=== PATIENT | female | born 2000 | race Two or more races ===

== ENCOUNTER 2024-11-22 04:24 | Inpatient (IN) | payer OTHER ==
[~2024-11-22] VITALS: Ht 152.4 cm; Wt 59.0 kg
--- NOTE | 2024-11-22 04:41 | NUR ---
PTE ALERTA Y ORIENTADA X3 QUIEN REFIERE VENIR DE TRANSFER DE CDT POR VOMITOS, HIPOTENSION Y FIEBRE. PRESION MANUAL 94/46
[2024-11-22] MEDS ORDERED: ACETAMINOPHEN 500 MG GEL..CAP PO STA (05:12)
[2024-11-22] MEDS ORDERED: 0.9 % SODIUM CHLORIDE 1,000 ML IV ONE (05:15)
[2024-11-22] MEDS ORDERED: ACETAMINOPHEN 500 MG GEL..CAP PO ONE ×3 (05:22→09:09)
--- NOTE | 2024-11-22 05:27 | NUR ---
PTE ALERTA Y ORIENTDA X3. FAB COLÓN EDUCA A PTE SOBRE DUNIA DE MUESTRAS Y TRATAMIENTO MEDICO ORDENADO POR MD, PTE REFIERE ENTENDER. SE REALIZA DUNIA DE MUESTRAS Y ADMINISTRACION DE MEDICAMENTOS BAJO MEDIDAS ASEPTICAS.
--- NOTE | 2024-11-22 05:29 | NUR ---
SE NOTIFICA SONO OBSTETRICO A JERRY. ESTA VERBALIZA DARLE SEGUIMIENTO EN HOSPITAL. CAMBIAR SONO OBSTETRICO POR Y REALIZARLO A LAS [id number]
--- NOTE | 2024-11-22 05:36 | NUR ---
SE LE ORIENTA SOBRE TX MEDICO LO CUAL REFIERE ENTENDER Y ACEPTAR SE LE REALZIAN MUESTRAS DE LAB BAJO MEDIAS ASEPTICAS Y SE LE ADMINISTRA MEDICAMENTOS VALERI ORDEN MEDICA
[2024-11-22 06:09] LABS: HEMATOCRIT 32.8 % (36.0-45.00); MEAN CELL VOLUME 88.8 fL (80.00-100.00); MEAN CORPUSCULAR HEMOGLOBIN 29.8 pg (27.00-32.0); MEAN CORPUSCULAR HGB CONC 33.5 g/dl (32.0-36.0); RED BLOOD COUNT 3.69 M/uL (4.00-6.00); RED CELL DISTRIBUTION WIDTH 15.8 % (11.5-14.5)
[2024-11-22 06:17] LABS: PLATELET COUNT 78 K/uL (150-450)
[2024-11-22 06:30] LABS: ALBUMIN 2.8 gm/dL (3.4-5.0); BILIRUBIN TOTAL 1.59 mg/dL (0.3-1.2); CALCIUM 8.7 mg/dL (8.5-10.1); CREATININE SERUM 0.6 mg/dL (0.55-1.02); GFR 123.88; GLOBULINA 3.7 G/DL (2.4-3.5); POTASSIUM 3.51 mEq/L (3.5-5.1); TOTAL PROTEIN 6.5 gm/dL (6.4-8.2)
[2024-11-22 07:13] LABS: PH,URINE 5.5 (5.0-8.0); URINE APPEARANCE Clear; URINE BILIRRUBIN Negative (NEGATIVE); URINE BLOOD Negative; URINE COLOR Dark Yellow; URINE GLUCOSE Negative (NEGATIVE); URINE LEUKOCYTE Trace; URINE NITRATE Negative; URINE PROTEIN Trace (NEGATIVE)
[2024-11-22 07:16] LABS: URINE BACTERIA 3491.9 uL (0.0-1933); URINE EPITHELIAL CELLS 44.1 uL (0.0-38.8); URINE RBC 12.9 uL (0.0-20.8); URINE WBC 88.6 uL (0.0-23.2)
[2024-11-22 07:41] LABS: URINE CAST 0.14 uL (0.0-1.40); URINE KETONE 80 (NEGATIVE)
[2024-11-22] MEDS ORDERED: CEFTRIAXONE SODIUM 1,000 MG VIAL IV STA (08:01)
--- NOTE | 2024-11-22 08:06 | NUR ---
SE RECIBE A PACIENTE ALERTA Y ORIENTADA X3 EN CAMA A NIVEL DE PISO JUNTO CON BARRANDAS ELEVADAS. CANALIZADA CON #22 EN LT ARTM BAJANDO 0.9NSS A 200ML/HR. PENDIENTE A CONSULTA OBSTETRICA.
[2024-11-22] MEDS ORDERED: CEFTRIAXONE SODIUM 1,000 MG VIAL ONE (08:08)
[2024-11-22] MEDS ORDERED: ONDANSETRON HCL 2 MG/ML VIAL IV ONE (09:00)
[2024-11-22] MEDS ORDERED: ONDANSETRON HCL 2 MG/ML VIAL ONE (09:09)
[2024-11-22] MEDS ORDERED: ONDANSETRON HCL 2 MG/ML VIAL IV PRN (09:15)
[2024-11-22] MEDS ORDERED: RINGERS SOLUTION,LACTATED 1,000 ML IV SCH (09:15)
[2024-11-22] MEDS ORDERED: ACETAMINOPHEN 500 MG GEL..CAP PO PRN (09:15)
[2024-11-22 09:54] LABS: PH,URINE 5.5 (5.0-8.0); URINE APPEARANCE Clear; URINE BILIRRUBIN Small (NEGATIVE); URINE BLOOD Negative; URINE COLOR Dark Yellow; URINE GLUCOSE Negative (NEGATIVE); URINE LEUKOCYTE Negative; URINE NITRATE Negative; URINE PROTEIN Trace (NEGATIVE)
[2024-11-22 09:56] LABS: URINE BACTERIA 628.9 uL (0.0-1933); URINE EPITHELIAL CELLS 14.4 uL (0.0-38.8); URINE WBC 16.6 uL (0.0-23.2)
[2024-11-22 10:06] LABS: URINE CAST 0.58 uL (0.0-1.40); URINE KETONE 80 (NEGATIVE)
[2024-11-22 11:05] VITALS: BP 90/55
[2024-11-22 17:00] VITALS: BP 92/59
[2024-11-22] MEDS ORDERED: FAMOTIDINE/PF 20 MG/2 ML VIAL IV SCH (17:00)
[2024-11-22 19:33] LABS: HEMATOCRIT 35.5 % (36.0-45.00); HEMOGLOBIN 11.7 g/dL (12.0-15.00); MEAN CORPUSCULAR HEMOGLOBIN 29.7 pg (27.00-32.0); RED BLOOD COUNT 3.95 M/uL (4.00-6.00); RED CELL DISTRIBUTION WIDTH 16.1 % (11.5-14.5)
[2024-11-22 19:36] LABS: PLATELET COUNT 49 K/uL (150-450)
[2024-11-22 19:40] LABS: URINE APPEARANCE Clear; URINE BILIRRUBIN Negative (NEGATIVE); URINE BLOOD Negative; URINE COLOR Yellow; URINE GLUCOSE Negative (NEGATIVE); URINE KETONE Negative (NEGATIVE); URINE LEUKOCYTE Trace; URINE NITRATE Negative; URINE PROTEIN Negative (NEGATIVE)
[2024-11-22 19:51] LABS: URINE BACTERIA 364.4 uL (0.0-1933); URINE EPITHELIAL CELLS 5.2 uL (0.0-38.8)
[2024-11-22 19:52] LABS: URINE RBC 1.9 uL (0.0-20.8)
[2024-11-22 19:57] LABS: BILIRUBIN TOTAL 1.09 mg/dL (0.3-1.2); CALCIUM 8.5 mg/dL (8.5-10.1); CREATININE SERUM 0.6 mg/dL (0.55-1.02); GFR 123.88; GLOBULINA 3.5 G/DL (2.4-3.5); POTASSIUM 4.23 mEq/L (3.5-5.1); TOTAL PROTEIN 6.5 gm/dL (6.4-8.2)
[2024-11-22 20:30] LABS: ABG PH 7.485 (7.35-7.45); ABG PO2 81.4 mmHg (80-100); ABG pCO2 25.7 mmHg (35-45); BASE EXCESS -2.7 mmol/l; SaO2 96.8 %; Tco2 19.7 mmol/l
[2024-11-22 20:36] LABS: allen test SATISFACTORY; o2 21 %; puncture site RADIAL LEFT
[2024-11-22 20:56] LABS: INR 1.1; PARTIAL THROMBOPLASTIN TIME 27.1 SECONDS (22.0-34.0); PROTHROMBIN TIME 11.9 SECONDS (9.0-11.5)
[2024-11-22 23:50] VITALS: BP 86/66
[2024-11-23] MEDS ORDERED: GUAIFENESIN 200 MG/10 ML BLIST.PACK PO SCH
[2024-11-23] MEDS ORDERED: BENZONATATE 100 MG CAPSULE PO SCH ×2 (02:52→05:00)
[2024-11-23 08:06] VITALS: BP 105/67; O2SAT 110
[2024-11-23] MEDS ORDERED: 0.9 % SODIUM CHLORIDE 1,000 ML IV SCH (08:15)
[2024-11-23 08:30] LABS: URINE APPEARANCE Clear; URINE BILIRRUBIN Negative (NEGATIVE); URINE BLOOD Negative; URINE COLOR Yellow; URINE GLUCOSE Negative (NEGATIVE); URINE LEUKOCYTE Negative; URINE NITRATE Negative; URINE PROTEIN Trace (NEGATIVE)
[2024-11-23 08:34] LABS: URINE BACTERIA 68.5 uL (0.0-1933); URINE EPITHELIAL CELLS 7.8 uL (0.0-38.8); URINE RBC 2.7 uL (0.0-20.8); URINE WBC 7.4 uL (0.0-23.2)
[2024-11-23 08:37] LABS: URINE CAST 0.14 uL (0.0-1.40); URINE KETONE >=160 (NEGATIVE)
[2024-11-23] MEDS ORDERED: SUCRALFATE 1 G TABLET PO SCH (09:00)
[2024-11-23 09:10] LABS: HEMATOCRIT 31.5 % (36.0-45.00); MEAN CELL VOLUME 89.3 fL (80.00-100.00); MEAN CORPUSCULAR HGB CONC 33.2 g/dl (32.0-36.0); RED BLOOD COUNT 3.53 M/uL (4.00-6.00)
[2024-11-23 09:12] LABS: HEMOGLOBIN 10.5 g/dL (12.0-15.00); MEAN CORPUSCULAR HEMOGLOBIN 29.7 pg (27.00-32.0); PLATELET COUNT 46 K/uL (150-450)
[2024-11-23 09:14] LABS: INR 1.11; PARTIAL THROMBOPLASTIN TIME 32.8 SECONDS (22.0-34.0)
[2024-11-23 09:35] LABS: ALBUMIN 2.9 gm/dL (3.4-5.0); BILIRUBIN TOTAL 1.1 mg/dL (0.3-1.2); CALCIUM 8.4 mg/dL (8.5-10.1); CREATININE SERUM 0.45 mg/dL (0.55-1.02); GFR 172.66; GLOBULINA 3.2 G/DL (2.4-3.5); POTASSIUM 3.32 mEq/L (3.5-5.1); TOTAL PROTEIN 6.1 gm/dL (6.4-8.2)
[2024-11-23] MEDS ORDERED: METHYLPREDNISOLONE SOD SUCC 40 MG VIAL IV STA (11:24)
[2024-11-23 11:27] LABS: MANUAL PLATELET COUNT 60
[2024-11-23] MEDS ORDERED: IPRATROPIUM BROMIDE 0.5 MG/2.5 ML AMPUL.NEB IH SCH (13:00)
[2024-11-23 15:19] LABS: HEMATOCRIT 32.2 % (36.0-45.00); HEMOGLOBIN 11.1 g/dL (12.0-15.00); MEAN CELL VOLUME 88.2 fL (80.00-100.00); MEAN CORPUSCULAR HEMOGLOBIN 30.3 pg (27.00-32.0); MEAN CORPUSCULAR HGB CONC 34.4 g/dl (32.0-36.0); RED BLOOD COUNT 3.66 M/uL (4.00-6.00); RED CELL DISTRIBUTION WIDTH 16.3 % (11.5-14.5)
[2024-11-23 15:29] LABS: PLATELET COUNT 45 K/uL (150-450); PLT IN CITRATE 50 K/uL (150-450)
[2024-11-23 15:52] VITALS: BP 109/71
[2024-11-23] MEDS ORDERED: BUDESONIDE 0.5 MG/2 ML AMPUL.NEB IH SCH (17:00)
[2024-11-23 18:41] LABS: URINE APPEARANCE Clear; URINE BILIRRUBIN Negative (NEGATIVE); URINE BLOOD Negative; URINE COLOR Yellow; URINE GLUCOSE Negative (NEGATIVE); URINE LEUKOCYTE Negative; URINE NITRATE Negative; URINE PROTEIN Negative (NEGATIVE)
[2024-11-23 18:42] LABS: URINE BACTERIA 4.8 uL (0.0-1933)
[2024-11-23 18:44] LABS: URINE KETONE 80 (NEGATIVE); URINE RBC 0.7 uL (0.0-20.8)
[2024-11-23 18:45] LABS: HEMATOCRIT 34.1 % (36.0-45.00); HEMOGLOBIN 11.8 g/dL (12.0-15.00); MEAN CORPUSCULAR HEMOGLOBIN 30.4 pg (27.00-32.0); MEAN CORPUSCULAR HGB CONC 34.6 g/dl (32.0-36.0); RED BLOOD COUNT 3.87 M/uL (4.00-6.00); RED CELL DISTRIBUTION WIDTH 16.4 % (11.5-14.5)
[2024-11-23 18:57] LABS: PLATELET COUNT 48 K/uL (150-450)
[2024-11-23 19:04] LABS: ALBUMIN 3.1 gm/dL (3.4-5.0); BILIRUBIN TOTAL 1.11 mg/dL (0.3-1.2); CALCIUM 8.7 mg/dL (8.5-10.1); CREATININE SERUM 0.54 mg/dL (0.55-1.02); GFR 139.9; GLOBULINA 3.8 G/DL (2.4-3.5); POTASSIUM 3.38 mEq/L (3.5-5.1); TOTAL PROTEIN 6.9 gm/dL (6.4-8.2)
[2024-11-23 19:31] LABS: MANUAL PLATELET COUNT 50; PLT IN CITRATE 42 K/uL (150-450)
[2024-11-23] MEDS ORDERED: METHYLPREDNISOLONE SOD SUCC 40 MG VIAL IV SCH (20:00)
[2024-11-23 20:24] VITALS: BP 90/60
[2024-11-23 22:56] LABS: INR 1.06; PARTIAL THROMBOPLASTIN TIME 31.9 SECONDS (22.0-34.0); PROTHROMBIN TIME 11.5 SECONDS (9.0-11.5)
[2024-11-24 01:22] VITALS: BP 99/52
[2024-11-24 06:51] LABS: HEMATOCRIT 32.5 % (36.0-45.00); HEMOGLOBIN 11.1 g/dL (12.0-15.00); MEAN CELL VOLUME 88.2 fL (80.00-100.00); MEAN CORPUSCULAR HEMOGLOBIN 30.2 pg (27.00-32.0); MEAN CORPUSCULAR HGB CONC 34.3 g/dl (32.0-36.0); RED BLOOD COUNT 3.68 M/uL (4.00-6.00); RED CELL DISTRIBUTION WIDTH 16.5 % (11.5-14.5)
[2024-11-24 06:54] LABS: URINE APPEARANCE Clear; URINE BILIRRUBIN Negative (NEGATIVE); URINE BLOOD Negative; URINE COLOR Yellow; URINE GLUCOSE Negative (NEGATIVE); URINE LEUKOCYTE Negative; URINE NITRATE Negative; URINE PROTEIN Trace (NEGATIVE)
[2024-11-24 06:55] LABS: URINE BACTERIA 57.5 uL (0.0-1933); URINE EPITHELIAL CELLS 20.8 uL (0.0-38.8); URINE WBC 11.7 uL (0.0-23.2)
[2024-11-24 06:57] LABS: PLATELET COUNT 38 K/uL (150-450)
[2024-11-24 06:57] LABS: URINE CAST 0.29 uL (0.0-1.40); URINE RBC 1.3 uL (0.0-20.8)
[2024-11-24 06:58] LABS: URINE KETONE >=160 (NEGATIVE)
[2024-11-24 07:43] LABS: ALBUMIN 2.6 gm/dL (3.4-5.0); BILIRUBIN TOTAL 0.95 mg/dL (0.3-1.2); CALCIUM 8.2 mg/dL (8.5-10.1); CREATININE SERUM 0.36 mg/dL (0.55-1.02); GFR 223.37; GLOBULINA 3.1 G/DL (2.4-3.5); POTASSIUM 3.47 mEq/L (3.5-5.1); TOTAL PROTEIN 5.7 gm/dL (6.4-8.2)
[2024-11-24 08:00] VITALS: BP 106/71; O2SAT 92
[2024-11-24 08:22] LABS: MANUAL PLATELET COUNT 44
[2024-11-24 08:26] LABS: PLT IN CITRATE 39 K/uL (150-450)
[2024-11-24] MEDS ORDERED: AZITHROMYCIN 500 MG VIAL IV SCH (09:00)
[2024-11-24] MEDS ORDERED: CEFTRIAXONE SODIUM 1,000 MG in DEXTROSE 5 % IN WATER 100 ML IV SCH ×2 (09:00)
[2024-11-24] MEDS ORDERED: POTASSIUM CHLORIDE IN WATER 100 ML IV SCH (09:00)
[2024-11-24 10:47] LABS: ABG PH 7.455 (7.35-7.45); ABG PO2 81.1 mmHg (80-100); ABG pCO2 26.8 mmHg (35-45); BASE EXCESS -3.8 mmol/l; BICARBONATE 18.4 mmol/l (23-25); SaO2 96.4 %; Tco2 19.3 mmol/l; allen test SATISFACTORY; o2 32 %; puncture site RADIAL LEFT
[2024-11-24 11:20] LABS: ALBUMIN 2.5 gm/dL (3.4-5.0); BILIRUBIN TOTAL 0.91 mg/dL (0.3-1.2); BILIRUBIN,CONJUGATED 0.23 mg/dL (0.0-0.2); BILIRUBIN,UNCONJUGATED 0.68 mg/dL (0.0-0.6); MAGNESIUM 1.5 mg/dL (1.8-2.4); TOTAL PROTEIN 5.7 gm/dL (6.4-8.2)
[2024-11-24 11:25] LABS: TSH 0.338 uIU/mL (0.358-3.74)
[2024-11-24 11:28] LABS: PROCALCITONIN 8.57 ng/ml (0.020-0.080)
[2024-11-24 12:44] VITALS: BP 106/65; O2SAT 95
[2024-11-24 15:14] VITALS: BP 112/67; O2SAT 96
[2024-11-24] MEDS ORDERED: LACTOBACILLUS ACIDOPHILUS 1 CAP CAP PO SCH (17:00)
[2024-11-24] MEDS ORDERED: MAGNESIUM SULFATE IN WATER 50 ML IV NR (18:45)
[2024-11-24 20:12] VITALS: BP 108/69; O2SAT 100
[2024-11-25] VITALS: BP 109/59; O2SAT 100
[2024-11-25 04:00] VITALS: BP 116/65; O2SAT 100
[2024-11-25] MEDS ORDERED: AZITHROMYCIN 500 MG VIAL IV ONE (08:47)
[2024-11-25] MEDS ORDERED: LEVALBUTEROL HCL 1.25 MG/3 ML SOLUTION IH SCH (09:00)
[2024-11-25] MEDS ORDERED: BUDESONIDE 0.5 MG/2 ML AMPUL.NEB IH SCH (09:00)
[2024-11-25] MEDS ORDERED: CEFTRIAXONE SODIUM 2,000 MG VIAL IV SCH (09:00)
[2024-11-25 09:48] LABS: HEMATOCRIT 31.2 % (36.0-45.00); HEMOGLOBIN 10.6 g/dL (12.0-15.00); MEAN CORPUSCULAR HGB CONC 34.1 g/dl (32.0-36.0); RED BLOOD COUNT 3.55 M/uL (4.00-6.00); RED CELL DISTRIBUTION WIDTH 16.4 % (11.5-14.5)
[2024-11-25 10:09] LABS: PLATELET COUNT 39 K/uL (150-450)
[2024-11-25] MEDS ORDERED: CHLORHEXIDINE GLUCONATE 120 ML BOTTLE TOP ONE (10:09)
[2024-11-25 10:20] LABS: D DIMER 2.43 MG/L; INR 0.98; PARTIAL THROMBOPLASTIN TIME 31.3 SECONDS (22.0-34.0); PROTHROMBIN TIME 10.7 SECONDS (9.0-11.5)
[2024-11-25 10:50] LABS: MANUAL PLATELET COUNT 56
[2024-11-25 11:31] LABS: ALBUMIN 2.3 gm/dL (3.4-5.0); BILIRUBIN TOTAL 1.18 mg/dL (0.3-1.2); CALCIUM 7.8 mg/dL (8.5-10.1); CREATININE SERUM 0.5 mg/dL (0.55-1.02); GFR 152.89; GLOBULINA 2.9 G/DL (2.4-3.5); MAGNESIUM 1.8 mg/dL (1.8-2.4); TOTAL PROTEIN 5.2 gm/dL (6.4-8.2)
[2024-11-25 12:00] VITALS: BP 149/71; BP 90/60; O2SAT 100; O2SAT 99
[2024-11-25 12:05] LABS: PHOSPHOROUS 1.5 mg/dL (2.5-4.9); POTASSIUM 2.96 mEq/L (3.5-5.1)
[2024-11-25] MEDS ORDERED: POTASSIUM CHLORIDE IN WATER 40 MEQ/100 ML PIGGYBAG IV SCH (12:17)
[2024-11-25] MEDS ORDERED: MAGNESIUM SULFATE IN WATER 2 GM/50 ML PIGGYBAG IV NR (13:30)
[2024-11-25 14:52] LABS: PLATELET ESTIMATE DECREASED (NORMAL)
[2024-11-25 15:07] VITALS: BP 92/60; O2SAT 100
[2024-11-25 20:28] VITALS: BP 92/58; O2SAT 100
[2024-11-25] MEDS ORDERED: POTASSIUM PHOS,M-BASIC-D-BASIC 3 MM/ML VIAL IV NR (21:00)
[2024-11-26] VITALS: BP 92/62; O2SAT 100
[2024-11-26 04:00] VITALS: BP 89/59; O2SAT 100
[2024-11-26 07:01] VITALS: BP 104/69; O2SAT 100
[2024-11-26] MEDS ORDERED: AZITHROMYCIN 500 MG VIAL IV ONE (07:54)
[2024-11-26 12:00] VITALS: BP 101/50; O2SAT 100
[2024-11-26 14:39] VITALS: BP 105/67; O2SAT 97
[2024-11-26 14:55] VITALS: BP 96/64
[2024-11-26 19:09] LABS: PH,URINE 7.5 (5.0-8.0); URINE APPEARANCE Clear; URINE BILIRRUBIN Negative (NEGATIVE); URINE BLOOD Negative; URINE COLOR Yellow; URINE GLUCOSE Negative (NEGATIVE); URINE KETONE Negative (NEGATIVE); URINE LEUKOCYTE Negative; URINE NITRATE Negative; URINE PROTEIN Negative (NEGATIVE)
[2024-11-26 19:12] LABS: URINE EPITHELIAL CELLS 3.6 uL (0.0-38.8); URINE WBC 6.3 uL (0.0-23.2)
[2024-11-26 19:42] LABS: URINE BACTERIA 2.4 uL (0.0-1933); URINE RBC 1.3 uL (0.0-20.8)
[2024-11-26] MEDS ORDERED: BUDESONIDE 0.5 MG/2 ML AMPUL.NEB IH SCH (21:00)
[2024-11-27 00:12] VITALS: BP 100/64
[2024-11-27 07:46] LABS: HEMATOCRIT 30.7 % (36.0-45.00); HEMOGLOBIN 10.2 g/dL (12.0-15.00); MEAN CELL VOLUME 89.1 fL (80.00-100.00); MEAN CORPUSCULAR HEMOGLOBIN 29.7 pg (27.00-32.0); MEAN CORPUSCULAR HGB CONC 33.3 g/dl (32.0-36.0); PLATELET COUNT 41 K/uL (150-450); RED BLOOD COUNT 3.44 M/uL (4.00-6.00); RED CELL DISTRIBUTION WIDTH 16.1 % (11.5-14.5)
[2024-11-27 08:19] VITALS: BP 100/60
[2024-11-27 08:41] LABS: ALBUMIN 2.4 gm/dL (3.4-5.0); ALKALINE PHOSPHATASE 78 U/L (50-136); ALT/SGPT 229 U/L (12-78); ANION GAP 8 (10.0-20.0); AST/SGOT 225 U/L (15-37); BILIRUBIN TOTAL 1.11 mg/dL (0.3-1.2); CALCIUM 8.7 mg/dL (8.5-10.1); CARBON DIOXIDE 28 mEq/L (21-32); CHLORIDE 110 mmol/L (98-107); CREATININE SERUM 0.36 mg/dL (0.55-1.02); GFR 223.37; GLOBULINA 3.2 G/DL (2.4-3.5); GLUCOSE FASTING 84 mg/dL (65-100); PHOSPHOROUS 2.7 mg/dL (2.5-4.9); POTASSIUM 3.59 mEq/L (3.5-5.1); SODIUM 142 mmol/L (136-145); TOTAL PROTEIN 5.6 gm/dL (6.4-8.2)
[2024-11-27 08:42] LABS: BLOOD UREA NITROGEN < 1 mg/dL (7-18); BUN CREA RATIO 3 (7.0-25.0); OSMOLALITY SERUM 278 MOSM/KG (275-295)
[2024-11-27 17:08] VITALS: BP 102/65
[2024-11-27] MEDS ORDERED: LEVALBUTEROL HCL 0.63 MG/3 ML SOLUTION IH SCH (17:25)
[2024-11-27 23:50] VITALS: BP 108/74
[2024-11-28] MEDS ORDERED: SUCRALFATE 1 G TABLET PO SCH (13:00)
[2024-11-28 16:00] VITALS: BP 108/66
[2024-11-29 00:30] VITALS: BP 108/70
[2024-11-29 06:35] LABS: HEMOGLOBIN 9.3 g/dL (12.0-15.00); MEAN CELL VOLUME 88.5 fL (80.00-100.00); MEAN CORPUSCULAR HEMOGLOBIN 29.5 pg (27.00-32.0); MEAN CORPUSCULAR HGB CONC 33.4 g/dl (32.0-36.0); RED BLOOD COUNT 3.16 M/uL (4.00-6.00); RED CELL DISTRIBUTION WIDTH 15.8 % (11.5-14.5)
[2024-11-29 06:37] LABS: PLATELET COUNT 49 K/uL (150-450)
[2024-11-29 07:10] LABS: ALBUMIN 2.2 gm/dL (3.4-5.0); BILIRUBIN TOTAL 0.7 mg/dL (0.3-1.2); CALCIUM 8.3 mg/dL (8.5-10.1); CREATININE SERUM 0.33 mg/dL (0.55-1.02); GFR 246.96; GLOBULINA 3.4 G/DL (2.4-3.5); POTASSIUM 3.31 mEq/L (3.5-5.1); TOTAL PROTEIN 5.6 gm/dL (6.4-8.2)
[2024-11-29 08:00] VITALS: BP 102/65; O2SAT 98
[2024-11-29] MEDS ORDERED: SODIUM CHLORIDE 0.45 % 1,000 ML IV SCH (09:15)
[2024-11-29] MEDS ORDERED: MAGNESIUM SULFATE 50% 1,000 MG/2 ML VIAL IM NR (10:06)
[2024-11-29] MEDS ORDERED: POTASSIUM CHLORIDE IN WATER 100 ML IV SCH (12:00)
[2024-11-29 16:01] VITALS: BP 102/65
[2024-11-30 00:51] VITALS: BP 108/74
[2024-11-30 06:59] LABS: HEMATOCRIT 33.1 % (36.0-45.00); MEAN CELL VOLUME 88.3 fL (80.00-100.00); MEAN CORPUSCULAR HEMOGLOBIN 29.5 pg (27.00-32.0); MEAN CORPUSCULAR HGB CONC 33.4 g/dl (32.0-36.0); RED BLOOD COUNT 3.75 M/uL (4.00-6.00); RED CELL DISTRIBUTION WIDTH 15.9 % (11.5-14.5)
[2024-11-30 07:08] LABS: PLT IN CITRATE 72 K/uL (150-450)
[2024-11-30 07:10] LABS: PLATELET COUNT 82 K/uL (150-450)
[2024-11-30 07:32] LABS: ALBUMIN 2.7 gm/dL (3.4-5.0); BILIRUBIN TOTAL 0.79 mg/dL (0.3-1.2); CALCIUM 8.9 mg/dL (8.5-10.1); CREATININE SERUM 0.43 mg/dL (0.55-1.02); GFR 181.96; POTASSIUM 3.54 mEq/L (3.5-5.1); TOTAL PROTEIN 6.7 gm/dL (6.4-8.2)
[2024-11-30 07:49] LABS: MANUAL PLATELET COUNT 226
[2024-11-30 08:23] VITALS: BP 100/60
[2024-11-30] MEDS ORDERED: RINGERS SOLUTION,LACTATED 1,000 ML IV.SOLN ONE (11:34)
[2024-11-30 14:22] VITALS: BP 95/60
[2024-11-30 15:50] VITALS: BP 96/60
[2024-11-30 19:00] VITALS: BP 108/74
[2024-12-01] VITALS: BP 109/72; O2SAT 100
[2024-12-01 07:11] LABS: HEMATOCRIT 32.8 % (36.0-45.00); HEMOGLOBIN 11.2 g/dL (12.0-15.00); MEAN CELL VOLUME 87.5 fL (80.00-100.00); MEAN CORPUSCULAR HEMOGLOBIN 29.7 pg (27.00-32.0); RED BLOOD COUNT 3.75 M/uL (4.00-6.00); RED CELL DISTRIBUTION WIDTH 15.8 % (11.5-14.5)
[2024-12-01 07:12] LABS: PLATELET COUNT 97 K/uL (150-450)
[2024-12-01 07:24] LABS: PLT IN CITRATE 91 K/uL (150-450)
[2024-12-01 07:44] LABS: MANUAL PLATELET COUNT 184
[2024-12-01 08:02] LABS: ALBUMIN 2.6 gm/dL (3.4-5.0); BILIRUBIN TOTAL 0.63 mg/dL (0.3-1.2); CALCIUM 8.8 mg/dL (8.5-10.1); CREATININE SERUM 0.38 mg/dL (0.55-1.02); GFR 209.86; GLOBULINA 3.6 G/DL (2.4-3.5); POTASSIUM 3.68 mEq/L (3.5-5.1); TOTAL PROTEIN 6.2 gm/dL (6.4-8.2)
[2024-12-01 08:07] VITALS: BP 95/57
[2024-12-01 16:08] VITALS: BP 98/63
[2024-12-01 20:00] VITALS: BP 94/60
[2024-12-02] VITALS: BP 93/58; O2SAT 99
[2024-12-02 07:32] LABS: HEMOGLOBIN 10.9 g/dL (12.0-15.00); MEAN CELL VOLUME 88.9 fL (80.00-100.00); MEAN CORPUSCULAR HEMOGLOBIN 29.3 pg (27.00-32.0); MEAN CORPUSCULAR HGB CONC 32.9 g/dl (32.0-36.0); RED BLOOD COUNT 3.72 M/uL (4.00-6.00); RED CELL DISTRIBUTION WIDTH 15.7 % (11.5-14.5)
[2024-12-02 07:34] LABS: PLATELET COUNT 110 K/uL (150-450)
[2024-12-02 07:51] LABS: MANUAL PLATELET COUNT 105
[2024-12-02] MEDS ORDERED: CARAFATE1 GM PO (07:51)
[2024-12-02] MEDS ORDERED: XOPENEX HFA15 GM IH (07:52)
[2024-12-02] MEDS ORDERED: BUDESONIDE0.5 MG/2 M IH (07:53)
[2024-12-02] MEDS ORDERED: INTESTINEX680 M1 PO (07:54)
[2024-12-02 08:17] VITALS: BP 97/60
[2024-12-02 08:47] LABS: ALBUMIN 2.6 gm/dL (3.4-5.0); BILIRUBIN TOTAL 0.6 mg/dL (0.3-1.2); CALCIUM 8.8 mg/dL (8.5-10.1); CREATININE SERUM 0.36 mg/dL (0.55-1.02); GFR 223.37; GLOBULINA 3.7 G/DL (2.4-3.5); POTASSIUM 3.75 mEq/L (3.5-5.1); TOTAL PROTEIN 6.3 gm/dL (6.4-8.2)
== END 2024-12-02 09:10 | disposition home or self-care (01) | DRG 831 ==
LOC: ER 04:24 → ICU 09:35 → OB/GYN 09:35 → SEC-K 09:35 → OB/GYN 09:47 → ICU 11-24 12:18 → OB/GYN 11-26 14:08
PROVIDERS: General Practice; Internal Medicine; Internal Medicine Hematology & Oncology; Internal Medicine Infectious Disease; Obstetrics & Gynecology; ADMIT Obstetrics & Gynecology; ATTEND Obstetrics & Gynecology
PROC: 4A033R1 Measurement of Arterial Saturation, Peripheral, Percutaneous Approach (ICD-10-PCS; principal; 2024-11-22)
PROC: 4A1HXCZ Monitoring of Products of Conception, Cardiac Rate, External Approach (ICD-10-PCS; 2024-11-22)
PROC: BY4CZZZ Ultrasonography of Second Trimester, Single Fetus (ICD-10-PCS; 2024-11-22)
PROC: 3E0F7GC Introduction of Other Therapeutic Substance into Respiratory Tract, Via Natural or Artificial Opening (ICD-10-PCS; 2024-11-23)
PROC: B246ZZZ Ultrasonography of Right and Left Heart (ICD-10-PCS; 2024-11-25)
PROC: BW40ZZZ Ultrasonography of Abdomen (ICD-10-PCS; 2024-12-01)
PROC: BY4CZZZ Ultrasonography of Second Trimester, Single Fetus (ICD-10-PCS; 2024-12-01)
DX: O98.812 Other maternal infectious and parasitic diseases complicating pregnancy, second trimester (principal); A41.9 Sepsis, unspecified organism; J18.9 Pneumonia, unspecified organism; A92.8 Other specified mosquito-borne viral fevers; O99.112 Other diseases of the blood and blood-forming organs and certain disorders involving the immune mechanism complicating pregnancy, second trimester; O21.8 Other vomiting complicating pregnancy; O26.842 Uterine size-date discrepancy, second trimester; O26.892 Other specified pregnancy related conditions, second trimester; O99.512 Diseases of the respiratory system complicating pregnancy, second trimester; D69.6 Thrombocytopenia, unspecified; O98.512 Other viral diseases complicating pregnancy, second trimester; B34.9 Viral infection, unspecified; J20.9 Acute bronchitis, unspecified; O99.282 Endocrine, nutritional and metabolic diseases complicating pregnancy, second trimester; E86.0 Dehydration; Z3A.16 16 weeks gestation of pregnancy

== ENCOUNTER 2025-02-12 10:38 | Emergency (ER) | payer OTHER ==
[~2025-02-12] VITALS: Ht 157.5 cm; Wt 65.3 kg
[~2025-02-12 10:38] MED LIST: BUDESONIDE0.5 MG/2 M IH; CARAFATE1 GM PO; INTESTINEX680 M1 PO; XOPENEX HFA15 GM IH
[2025-02-12 11:24] VITALS: BP 114/66; O2SAT 98
[2025-02-12] MEDS ORDERED: CETIRIZINE HCL 5 MG/5 ML ML PO ONE (14:45)
[2025-02-12] MEDS ORDERED: CETIRIZINE HCL 5MG/5ML BLIST.PACK PO ONE ×2 (14:59→15:09)
[2025-02-12 15:32] LABS: HEMATOCRIT 35.3 % (36.0-45.00); HEMOGLOBIN 11.8 g/dL (12.0-15.00); MEAN CELL VOLUME 90.6 fL (80.00-100.00); MEAN CORPUSCULAR HEMOGLOBIN 30.3 pg (27.00-32.0); MEAN CORPUSCULAR HGB CONC 33.5 g/dl (32.0-36.0); RED CELL DISTRIBUTION WIDTH 14.1 % (11.5-14.5)
[2025-02-12 15:38] LABS: PLATELET COUNT 80 K/uL (150-450)
[2025-02-12 18:01] LABS: ALBUMIN 2.8 gm/dL (3.4-5.0); BILIRUBIN TOTAL 0.81 mg/dL (0.3-1.2); BILIRUBIN,CONJUGATED 0.15 mg/dL (0.0-0.2); BILIRUBIN,UNCONJUGATED 0.66 mg/dL (0.0-0.6); CALCIUM 8.7 mg/dL (8.5-10.1); CREATININE SERUM 0.53 mg/dL (0.55-1.02); GFR 141.72; GLOBULINA 3.7 G/DL (2.4-3.5); POTASSIUM 3.39 mEq/L (3.5-5.1); TOTAL PROTEIN 6.5 gm/dL (6.4-8.2)
== END 2025-02-12 19:19 | disposition home or self-care (01) ==
LOC: ER 10:39
PROVIDERS: General Practice
DX: O99.712 Diseases of the skin and subcutaneous tissue complicating pregnancy, second trimester (principal); Z3A.27 27 weeks gestation of pregnancy; L50.8 Other urticaria

== ENCOUNTER 2025-04-21 20:56 | Outpatient (CLI) | payer OTHER ==
[2025-04-21 19:57] VITALS: BP 108/72
[2025-04-21] MEDS ORDERED: RINGERS SOLUTION,LACTATED 1,000 ML IV SCH (21:00)
[2025-04-21 21:23] LABS: BASO % 0.3 % (0.1-1.2); EOS # 0.05 (0.04-0.54); EOS % 0.9 % (0.7-7.0); HEMATOCRIT 31.9 % (34.1-44.9); HEMOGLOBIN 10.4 g/dL (11.2-15.7); LYMPH # 0.96 (1.18-3.74); LYMPH % 16.4 % (19.3-53.1); MEAN CORPUSCULAR HEMOGLOBIN 29.7 pg (25.6-32.2); MONO # 0.56 (0.24-0.82); MONO % 9.6 % (4.7-12.5); NEUT # 4.14 (1.56-6.13); NEUT % 70.9 % (34.0-71.1); PLATELET COUNT 70 K/uL (163-369); RED CELL DISTRIBUTION WIDTH 17.8 % (11.6-14.4)
[2025-04-21] MEDS ORDERED: MILLIPRED5 MG PO (21:23)
[2025-04-21 23:16] VITALS: BP 123/74
[2025-04-22 03:56] VITALS: BP 105/58
[2025-04-22 07:13] VITALS: BP 116/71
[2025-04-22 09:25] VITALS: BP 116/71
== END 2025-04-22 09:47 | disposition home or self-care (01) ==
LOC: OBS/DEL 20:56
PROVIDERS: Obstetrics & Gynecology; ATTEND Specialist
DX: O36.8130 Decreased fetal movements, third trimester, not applicable or unspecified (principal); Z3A.37 37 weeks gestation of pregnancy

== ENCOUNTER 2025-05-01 08:16 | Inpatient (IN) | payer OTHER ==
[~2025-05-01] VITALS: Ht 152.4 cm; Wt 68.0 kg
[~2025-05-01 08:16] MED LIST changes: +MILLIPRED5 MG PO
[2025-05-01 08:30] VITALS: BP 115/71
[2025-05-01] MEDS ORDERED: PRENATA CHEWAB1 EACH PO (09:21)
[2025-05-01] MEDS ORDERED: AMPICILLIN SODIUM 2,000 MG VIAL IV ONE (09:30)
[2025-05-01] MEDS ORDERED: RINGERS SOLUTION,LACTATED 1,000 ML IV SCH (09:30)
[2025-05-01 09:35] LABS: BASO % 0.2 % (0.1-1.2); EOS # 0.03 (0.04-0.54); EOS % 0.5 % (0.7-7.0); LYMPH # 0.65 (1.18-3.74); LYMPH % 10.1 % (19.3-53.1); MEAN PLATELET VOLUME 13.10 fl (9.4-12.4); MONO # 0.49 (0.24-0.82); MONO % 7.6 % (4.7-12.5); NEUT # 5.22 (1.56-6.13); NEUT % 80.8 % (34.0-71.1); RED CELL DISTRIBUTION WIDTH 17.2 % (11.6-14.4); URINE APPEARANCE Clear; URINE BILIRRUBIN Negative (NEGATIVE); URINE BLOOD Negative; URINE COLOR Yellow; URINE KETONE Negative (NEGATIVE); URINE LEUKOCYTE Negative; URINE NITRATE Negative; URINE PROTEIN Negative (NEGATIVE); URINE UROBILINOGEN 1.0 E.U./dl
[2025-05-01 09:38] LABS: URINE BACTERIA 966.6 uL (0.0-1933); URINE EPITHELIAL CELLS 24.8 uL (0.0-38.8); URINE RBC 2.2 uL (0.0-20.8); URINE WBC 18.3 uL (0.0-23.2)
[2025-05-01 09:46] LABS: URINE CAST 0.14 uL (0.0-1.40); URINE GLUCOSE 100 MG/DL (NEGATIVE)
[2025-05-01 09:52] LABS: INR < 0.93
[2025-05-01 09:56] LABS: ALT/SGPT 18.0 U/L (12-78); AST/SGOT 13.0 U/L (15-37); BILIRUBIN TOTAL 0.95 mg/dL (0.3-1.2); BUN CREA RATIO 10.0 (7.0-25.0); CREATININE SERUM 0.48 mg/dL (0.55-1.02); GFR 158.89; GLOBULINA 3.4 G/DL (2.4-3.5); GLUCOSE FASTING 85.0 mg/dL (65-100); OSMOLALITY SERUM 281.0 MOSM/KG (275-295)
[2025-05-01 11:46] VITALS: BP 119/64
[2025-05-01] MEDS ORDERED: AMPICILLIN SODIUM 1,000 MG VIAL IV SCH (13:00)
[2025-05-01 15:13] VITALS: BP 113/75
[2025-05-01 19:44] VITALS: BP 115/64
[2025-05-01 23:20] VITALS: BP 140/75
[2025-05-02] VITALS (7 sets, daily range): BP systolic 112–138; BP diastolic 58–82
[2025-05-02] MEDS ORDERED: OXYTOCIN 500 ML IV SCH (08:45)
[2025-05-02 21:26] LABS: BASO % 0.1 % (0.1-1.2); EOS # 0.00 (0.04-0.54); EOS % 0.0 % (0.7-7.0); LYMPH # 0.30 (1.18-3.74); LYMPH % 2.4 % (19.3-53.1); MEAN PLATELET VOLUME 13.00 fl (9.4-12.4); MONO # 0.61 (0.24-0.82); MONO % 4.9 % (4.7-12.5); NEUT # 11.47 (1.56-6.13); NEUT % 92.0 % (34.0-71.1); RED CELL DISTRIBUTION WIDTH 16.9 % (11.6-14.4)
[2025-05-02] MEDS ORDERED: ACETAMINOPHEN 500 MG GEL..CAP PO SCH (22:04)
[2025-05-02 22:06] LABS: MANUAL PLATELET COUNT 88
[2025-05-02] MEDS ORDERED: ERYTHROMYCIN BASE OPHT 1GM EACH TUBE OP ONE (22:15)
[2025-05-02] MEDS ORDERED: OXYTOCIN 1,000 ML IV SCH (22:15)
[2025-05-02] MEDS ORDERED: LIDOCAINE HCL 1% 10ML VIAL PERCUT ONE (22:15)
[2025-05-03] VITALS: BP 100/64
[2025-05-03] MEDS ORDERED: ACETAMINOPHEN 500 MG GEL..CAP PO SCH (02:00)
[2025-05-03 04:00] VITALS: BP 95/61
[2025-05-03 08:00] VITALS: BP 90/55
[2025-05-03 16:55] VITALS: BP 108/65
[2025-05-03 23:48] VITALS: BP 90/57
[2025-05-04 08:30] VITALS: BP 114/79
== END 2025-05-04 15:40 | disposition home or self-care (01) | DRG 807 ==
LOC: LDR 08:16 → OB/GYN 05-02 19:36
PROVIDERS: ADMIT Specialist; ATTEND Specialist
PROC: 4A1HXCZ Monitoring of Products of Conception, Cardiac Rate, External Approach (ICD-10-PCS; 2025-05-01)
PROC: 10E0XZZ Delivery of Products of Conception, External Approach (ICD-10-PCS; principal; 2025-05-02)
PROC: 0W8NXZZ Division of Female Perineum, External Approach (ICD-10-PCS; 2025-05-02)
DX: O69.81X0 Labor and delivery complicated by cord around neck, without compression, not applicable or unspecified (principal); Z37.0 Single live birth; O99.824 Streptococcus B carrier state complicating childbirth; Z3A.39 39 weeks gestation of pregnancy

== ENCOUNTER → 2025-06-05 | Emergency (ER) | payer OTHER ==
[~2025-06-05] VITALS: Ht 152.4 cm; Wt 58.5 kg
[~2025-06-05] MED LIST changes: +ACETAMINOPHEN500 M1 PO; +PRENATA CHEWAB1 EACH PO
== END | disposition home or self-care (01) ==
LOC: ER 19:25
DX: R10.2 Pelvic and perineal pain (principal); O90.89 Other complications of the puerperium, not elsewhere classified